=== PATIENT | male | born 1980 | race Caucasian/White ===

== ENCOUNTER 2018-12-20 09:20 | Emergency (ER) | payer MEDICARE, MEDICAID ==
--- NOTE | 2018-12-20 10:01 | UC ---
UC General HPI - HPI Summary HPI Summary: pimple R thigh Friday. now bigger, red and draining. no hx MRSA. No fever. - History of Current Complaint Chief Complaint: UCGeneralIllness Stated Complaint: PERSONAL/SKIN CONCERN Time Seen by Provider: 12/20/18 09:35 Hx Obtained From: Patient Onset/Duration: Gradual Onset Timing: Constant Pain Intensity: 0 Associated Signs & Symptoms: Negative: Fever - Allergy/Home Medications Allergies/Adverse Reactions: Allergies Allergy/AdvReac Type Severity Reaction Status Date / Time MS Erythromycin AdvReac Intermediate GI Upset Verified 12/20/18 09:44 [Erythromycin] seasoan; dust Allergy Unknown Uncoded 12/20/18 09:44 Reaction Details Home Medications: Home Medications Docusate Sodium [Colace] 100 mg PO DAILY 12/20/18 [History Confirmed 12/20/18] PMH/Surg Hx/FS Hx/Imm Hx - Additional Past Medical History Additional PMH: allergies, intellectual disability Respiratory History: Asthma - Surgical History Surgical History: Yes Surgery Procedure, Year, and Place: Ear tubes as a child - Family History Known Family History: Positive: Unknown - patient from prison, family history unknown Negative: Hypertension, Diabetes - Social History Lives: Assisted Living Alcohol Use: Rare Substance Use Type: None Smoking Status (MU): Never Smoked Tobacco - Immunization History Most Recent Influenza Vaccination: [id number] Hx Tetanus, Diphtheria Vaccination: Yes Vaccination Up to Date: Yes Review of Systems All Other Systems Reviewed And Are Negative: Yes Constitutional: Negative: Fever Skin: Positive: Rash Physical Exam Triage Information Reviewed: Yes Appearance: Well-Appearing Vital Signs: Initial Vital Signs Temp 98.3 F 12/20/18 09:39 Pulse 74 12/20/18 09:39 Resp 16 12/20/18 09:39 BP 153/96 12/20/18 09:39 Pulse Ox 99 12/20/18 09:39 Vital Signs Reviewed: Yes Eyes: Positive: Conjunctiva Clear Neck: Positive: Supple Respiratory: Positive: Lungs clear Cardiovascular: Positive: RRR Abdomen Description: Positive: Nontender Musculoskeletal: Positive: ROM Intact Neurological: Positive: Alert Psychological: Positive: Age Appropriate Behavior - per baselinr Skin Exam: Normal, Other - Quarter size area of erythema R thigh with a central pustule that is draining. Site not indurated or fluctuant. Gentle preesure expressed a tiny spot of puss whic was cultured. Course/Dx - Course Course Of Treatment: This provider washed site with soap, h2o then dried and covered with Bacitracin and non adhering telfa. claim taker notes avg BP's 120/70's. BP here visit related and improving at time of discharge. - Diagnoses Provider Diagnosis: Skin pustule, Cellulitis Discharge - Sign-Out/Discharge Documenting (check all that apply): Patient Departure All imaging exams completed and their final reports reviewed: No Studies - Discharge Plan Condition: Stable Disposition: HOME Prescriptions: Sulfamethox/Trimethoprim DS* [Bactrim DS 800/160 TAB*] 1 tab PO BID 10 Days #20 tab Patient Education Materials: Cellulitis (DC) Referrals: Tony Barrera MD [Primary Care Provider] - 3 Days Additional Instructions: WARM COMPRESS SITE FOR 15 MINUTES 3 X'S DAILY. - Billing Disposition and Condition Condition: STABLE Disposition: Home
[2018-12-20] MEDS ORDERED: Sulfamethox/Trimethoprim DS 800/160* TAB PO ONE (10:06)
[2018-12-20 10:13] VITALS: BP 138/89
== END 2018-12-20 10:20 | disposition home or self-care (01) ==
LOC: UCCORT 09:20
DX: L03.115 Cellulitis of right lower limb (principal); L08.89 Other specified local infections of the skin and subcutaneous tissue; J45.909 Unspecified asthma, uncomplicated; Z88.1 Allergy status to other antibiotic agents; Z91.09 Other allergy status, other than to drugs and biological substances
CPT/HCPCS: 87070; 87077; 87186; 87205; 87640; 87641; 99212; A9270-GY; G0463